=== PATIENT | female | born 1985 | race African-American/Black ===

== ENCOUNTER 2017-03-28 01:35 | Emergency (ER) | payer OTHER ==
[~2017-03-28] VITALS: Ht 165.1 cm; Wt 54.4 kg
[2017-03-28 03:07] LABS: BASO # 0.1 x10^3/uL (0.0-0.2); BASO % 1 % (0-3); EOS % 4 % (0-3); HEMOGLOBIN 13.6 g/dL (12.0-15.5); LYMPH # 3.9 x10^3/uL (1.0-4.8); LYMPH % 58 % (24-48); MEAN CORPUSCULAR HEMOGLOBIN 33 pg (25-35); MEAN CORPUSCULAR HGB CONC 33 g/dL (31-37); MEAN CORPUSCULAR VOLUME 98 fL (79-100); MONO % 7 % (0-9); NEUT % 31 % (31-73); PLATELET COUNT 218 x10^3/uL (140-400); RED BLOOD COUNT 4.19 x10^6/uL (3.50-5.40); RED CELL DISTRIBUTION WIDTH 13.8 % (11.5-14.5); WHITE BLOOD COUNT 6.7 x10^3/uL (4.0-11.0)
[2017-03-28 03:36] LABS: CREATININE 0.8 mg/dL (0.6-1.0); GFR 101.2; POTASSIUM 3.9 mmol/L (3.5-5.1)
[2017-03-28 03:41] VITALS: BP 122/90
[2017-03-28 03:42] LABS: ALBUMIN 4.3 g/dL (3.4-5.0); ALBUMIN/GLOBULIN RATIO 1.3 (1.0-1.7); TOTAL BILIRUBIN 0.3 mg/dL (0.2-1.0); TOTAL PROTEIN 7.5 g/dL (6.4-8.2)
[2017-03-28] MEDS ORDERED: KETOROLAC TROMETHAMINE 30 MG/ML INJ. IV ONE (04:00)
[2017-03-28] MEDS ORDERED: NAPR500T PO (04:31)
--- NOTE | 2017-03-28 04:31 | PHYS DOC ---
Past Medical History Past Medical History: No Pertinent History Past Surgical History: Tonsillectomy Alcohol Use: Occasionally Drug Use: None Adult General Chief Complaint Chief Complaint: CHEST WALL PAIN HPI HPI Patient is a 32 year old female who presents here today complaining of left- sided chest pain. Patient reports she's had the pain intermittently for a couple days. Patient denies any fevers shakes chills nausea vomiting diarrhea cough cold or runny nose. Patient has any URI symptoms. Patient has any diaphoresis or jaw pain. Patient reports she has some discomfort to her back area. Patient has a dysuria frequency urgency. Patient reports that she has chest pain with palpation. Patient reports the pain is greatest on her left breast. Review of systems: Constitutional: Denies fever or chills HENT: Denies nasal congestion or sore throat All other review systems are negative except as documented in the history of present illness portion. Physical exam: Constitutional: no acute distress, non-toxic appearance. HENT: Normocephalic, atraumatic, bilateral external ears normal, Eyes: EOMI, conjunctiva normal, no discharge. Neck: Normal range of motion, Cardiovascular:Heart rate regular rhythm Lungs & Thorax: Bilateral breath sounds clear to auscultation Abdomen: Soft nondistended no rebound or guarding no tenderness at McBurney's point, Otero's sign, patient has normal active bowel sounds, Skin: Warm, dry, no erythema, no rash. Back: No tenderness, no CVA tenderness. Extremities: No tenderness, no cyanosis, no clubbing, ROM intact, no edema. Neurologic: Alert and oriented X 3, normal motor function, normal sensory function, no focal deficits noted. Psychologic: Affect normal, judgement normal, mood normal. Patient's ER workup was unremarkable. Patient had normal CBC, CMP, d-dimer, troponin, EKG, chest x-ray. Assessment and plan Atypical chest pain. Etiology of chest pain is unclear. Pain is most likely mechanical in nature however anxiety could be contributing to it. Patient was given Toradol IV with some relief in her discomfort. Patient be discharged home and instructed to follow-up with her primary care physician for further follow- up and management. EKG reveals normal sinus rhythm at a heart rate of [address]-T wave abnormalities. No evidence of ST elevation RI. Interpreted by ER physician Chest x-ray reveals normal heart size. No infiltrates or effusions. No evidence of pneumonia. Interpreted by ER physician Current Medications Current Medications Current Medications Medications (Trade) Dose Ordered Sig/Kina Start Time Stop Time Status Last Admin Dose Admin Ketorolac Tromethamine (Toradol) 30 mg 1X ONCE 03/28/17 04:00 03/28/17 04:01 DC 03/28/17 04:01 30 MG Allergies Allergies Allergies Coded Allergies Type Severity Reaction Last Updated Verified No Known Drug Allergies 03/28/17 No Current Patient Data Vital Signs Vital Signs Date Time Temp Pulse Resp B/P (MAP) Pulse Ox O2 Delivery O2 Flow Rate FiO2 03/28/17 03:41 101 122/90 (101) 100 Room Air 03/28/17 01:43 98.3 18 98.3 Lab Values Laboratory Tests Test 03/28/17 01:08 03/28/17 01:50 POC Urine HCG, Qualitative Hcg negative (Negative) White Blood Count 6.7 x10^3/uL (4.0-11.0) Red Blood Count 4.19 x10^6/uL (3.50-5.40) Hemoglobin 13.6 g/dL (12.0-15.5) Hematocrit 41.0 % (36.0-47.0) Mean Corpuscular Volume 98 fL (79-100) Mean Corpuscular Hemoglobin 33 pg (25-35) Mean Corpuscular Hemoglobin Concent 33 g/dL (31-37) Red Cell Distribution Width 13.8 % (11.5-14.5) Platelet Count 218 x10^3/uL (140-400) Neutrophils (%) (Auto) 31 % (31-73) Lymphocytes (%) (Auto) 58 % (24-48) H Monocytes (%) (Auto) 7 % (0-9) Eosinophils (%) (Auto) 4 % (0-3) H Basophils (%) (Auto) 1 % (0-3) Neutrophils # (Auto) 2.1 x10^3uL (1.8-7.7) Lymphocytes # (Auto) 3.9 x10^3/uL (1.0-4.8) Monocytes # (Auto) 0.4 x10^3/uL (0.0-1.1) Eosinophils # (Auto) 0.2 x10^3/uL (0.0-0.7) Basophils # (Auto) 0.1 x10^3/uL (0.0-0.2) D-Dimer (Rebekah) < 0.27 ug/mlFEU Sodium Level 143 mmol/L (136-145) Potassium Level 3.9 mmol/L (3.5-5.1) Chloride Level 107 mmol/L (98-107) Carbon Dioxide Level 28 mmol/L (21-32) Anion Gap 8 (6-14) Blood Urea Nitrogen 17 mg/dL (7-20) Creatinine 0.8 mg/dL (0.6-1.0) Estimated GFR (Cockcroft-Gault) 101.2 BUN/Creatinine Ratio 21 (6-20) H Glucose Level 84 mg/dL (70-99) Calcium Level 9.0 mg/dL (8.5-10.1) Total Bilirubin 0.3 mg/dL (0.2-1.0) Aspartate Amino Transferase (AST) 19 U/L (15-37) Alanine Aminotransferase (ALT) 27 U/L (14-59) Alkaline Phosphatase 78 U/L (46-116) Troponin I Quantitative < 0.017 ng/mL (0.000-0.055) LF-Czl-F-Type Natriuretic Peptide 9 pg/mL (0-124) Total Protein 7.5 g/dL (6.4-8.2) Albumin 4.3 g/dL (3.4-5.0) Albumin/Globulin Ratio 1.3 (1.0-1.7) Laboratory Tests 03/28/17 01:50 Laboratory Tests 03/28/17 01:50 EKG EKG [] Radiology/Procedures Radiology/Procedures [] Course & Med Decision Making Course & Med Decision Making Pertinent Labs and Imaging studies reviewed. (See chart for details) [] Dragon Disclaimer Dragon Disclaimer This electronic medical record was generated, in whole or in part, using a voice recognition dictation system. Departure Departure Impression: Primary Impression: Nonspecific chest pain Disposition: HOME, SELF-CARE Condition: IMPROVED Referrals: NITISH FOY (PCP) Patient Instructions: Chest Pain (Nonspecific) Scripts Naproxen (NAPROSYN) 500 Mg Tablet 500 MG PO BID, #20 TAB Prov: DAVID MARS MD 03/28/17 DAVID MARS MD Mar 28, 2017 04:31
--- NOTE | 2017-03-28 08:08 | RAD ---
PA and lateral chest radiographs 03/28/2017. Clinical History: Chest pain.. PA and lateral digital radiographs of the chest were obtained. No previous studies are available for comparison. The cardiac and mediastinal silhouettes are within normal limits in size and configuration. No pulmonary infiltrate is seen. No pleural effusion or pneumothorax is noted. The osseous structures are grossly intact. Impression: No radiographic evidence of active cardiopulmonary disease.
--- NOTE | 2017-03-30 06:18 | EKG ---
[facility] [address] [place] [id number] Test Date: 2017-03-28 Test Time: 01:46:53 Pat Name: GIAN SINGH Department: Room: Gender: F Electrotype Caster: : 1985 Requested By: DAVID MARS Order Number: [id number] Reading MD: Measurements Intervals [place] Rate: 83 P: 67 CA: 176 QRS: 88 QRSD: 90 T: 45 QT: 364 QTc: 433 Interpretive Statements SINUS RHYTHM LEFT ATRIAL ABNORMALITY RI6.01 Unconfirmed report No previous ECG available for comparison
== END 2017-03-28 04:47 | disposition home or self-care (01) ==
LOC: ER 01:35
DX: R07.89 Other chest pain (principal); R30.0 Dysuria; R39.15 Urgency of urination; R35.0 Frequency of micturition
CPT/HCPCS: 36415; 71020; 80053; 81025; 83880; 84484; 85025; 85379; 93005; 96374; 99285; J1885